=== PATIENT | male | born 1985 | race Caucasian/White ===

== ENCOUNTER 2016-06-23 11:32 | Emergency (ER) | payer SELFPAY ==
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
[2016-06-23 13:59] VITALS: BP 124/68; PULSE 97; RESP 18; TEMP 97.9
== END 2016-06-23 14:06 | disposition home or self-care (01) ==
LOC: EC 11:32
DX: M51.26 Other intervertebral disc displacement, lumbar region (principal); M51.27 Other intervertebral disc displacement, lumbosacral region; L05.91 Pilonidal cyst without abscess; F90.9 Attention-deficit hyperactivity disorder, unspecified type; F17.200 Nicotine dependence, unspecified, uncomplicated; Z88.5 Allergy status to narcotic agent; Z79.899 Other long term (current) drug therapy; W17.89XA Other fall from one level to another, initial encounter; Y93.55 Activity, bike riding
CPT/HCPCS: 72131; 99283

== ENCOUNTER 2016-11-23 16:52 | Emergency (ER) | payer OTHER ==
[2016-11-23 17:33] VITALS: BP 122/60; PULSE 89; RESP 16; TEMP 98.6
[2016-11-23] MEDS ORDERED: ACET/COD 300 MG/30 MG STARTER PACK 6 TAB BTL PO STA (17:56)
[2016-11-23] MEDS ORDERED: SULFAMETH-TMP DS STARTER PACK 2 TAB BTL PO STA (17:56)
--- NOTE | 2016-11-23 18:33 | ED ---
Skin/Abscess/FB HPI - General Chief complaint: Skin/Abscess/Foreign Body Stated complaint: Cyst on Tailbone Time Seen by Provider: 11/23/16 17:51 Source: patient, RN notes reviewed, old records reviewed Mode of arrival: ambulatory Limitations: no limitations - History of Present Illness Initial comments: 31 year old male with CC of abscess on taibone for the past 24 hours. Patient reports he has had pilionidal cyst on tailbone for the past few years, and has to have it drained everyonce in awhile, when it seems to act up. Patient reports that he has had no fever or chills.Patient denies any recent antibiotic use, and does not know if he has a hisotry of MRSA. - Related Data Home Medications Medication Instructions Recorded Confirmed Dextroamphetamine/Amphetamine 20 mg PO BID 09/11/15 06/23/16 [Adderall] Previous Rx's Medication Instructions Recorded predniSONE 50 mg PO DAILY #5 tab 06/23/16 Acetaminophen-Codeine 300-30mg 1 tab PO Q4H PRN #20 tablet 11/23/16 [Tylenol #3] Sulfamethox-Tmp 800-160Mg [Bactrim 2 tab PO Q12HR #40 tab 11/23/16 DS 800-160 mg] Allergies Allergy/AdvReac Type Severity Reaction Status Date / Time tramadol Allergy Swelling Verified 06/23/16 13:14 Review of Systems ROS Statement: Those systems with pertinent positive or pertinent negative responses have been documented in the HPI. ROS Other: All systems not noted in ROS Statement are negative. Past Medical History Past Medical History: No Reported History Additional Past Medical History / Comment(s): back pain, pilonidal cyst History of Any Multi-Drug Resistant Organisms: None Reported Past Surgical History: Back Surgery Additional Past Surgical History / Comment(s): laminectomy L4 L5 Past Psychological History: ADD/ADHD Smoking Status: Current every day smoker Past Alcohol Use History: None Reported Past Drug Use History: None Reported General Exam Limitations: no limitations General appearance: alert, in no apparent distress Head exam: Present: atraumatic, normocephalic, normal inspection Eye exam: Present: normal appearance, PERRL, EOMI. Absent: scleral icterus, conjunctival injection, periorbital swelling ENT exam: Present: normal exam, mucous membranes moist Neck exam: Present: normal inspection. Absent: tenderness, meningismus, lymphadenopathy Respiratory exam: Present: normal lung sounds bilaterally. Absent: respiratory distress, wheezes, rales, rhonchi, stridor Cardiovascular Exam: Present: regular rate, normal rhythm, normal heart sounds. Absent: systolic murmur, diastolic murmur, rubs, gallop, clicks GI/Abdominal exam: Present: soft, normal bowel sounds. Absent: distended, tenderness, guarding, rebound, rigid Extremities exam: Present: normal inspection, full ROM, normal capillary refill. Absent: tenderness, pedal edema, joint swelling, calf tenderness Back exam: Present: normal inspection, other (large pilionidal abscess. ) Neurological exam: Present: alert, oriented X3, CN II-XII intact Psychiatric exam: Present: normal affect, normal mood Skin exam: Present: warm, dry, intact, normal color. Absent: rash Course Vital Signs 11/23/16 17:30 Temperature 98.6 F Pulse Rate 89 Respiratory 16 Rate Blood Pressure 122/60 O2 Sat by Pulse 99 Oximetry Procedures - Incision & Drainage Consent Obtained: verbal consent Indication: pilionidal abscess Site: buttock Size (cm): 6 Anesthetic Used: lidocaine 1% Amount (mLs): 10 I&D Cleaning Method: Betadine Sterile Field Used?: Yes Scalpel Used: #11 I&D Drainage Obtained: Pus, Blood Packing: Iodoform Culture Obtained?: Yes Patient Tolerated Procedure: well, no complications Medical Decision Making - Medical Decision Making 31 year old male with CC of abscess on [facility] for the past 24 hours. Patient reports he has had pilionidal cyst on [facility] for the past few years, and has to have it drained everyonce in awhile, when it seems to act up. Patient recieved I and D of the abscess, significant amount of pus was removed. Patient was packed with iodoform and culture obtained. Patient will be started on bactrim DS. Discussed follow up with surgeon. Kvng agrees to treatment plan and will comply. Disposition Clinical Impression: Pilonidal abscess Disposition: HOME SELF-CARE Condition: Good Instructions: Pilonidal Cyst (ED) Additional Instructions: Patient needs to follow-up with a surgeon. Take antibiotics as prescribed. Remove the packing in approximately 3 days. Return to the emergency department if any alarming signs or symptoms occur including fevers, chills or worsening signs or symptoms. Prescriptions: Acetaminophen-Codeine 300-30mg [Tylenol #3] 1 tab PO Q4H PRN #20 tablet PRN Reason: Pain Sulfamethox-Tmp 800-160Mg [Bactrim DS 800-160 mg] 2 tab PO Q12HR #40 tab Referrals: Talita Aragon III, MD [Primary Care Provider] - 1-2 days Chuckie Deal MD [STAFF PHYSICIAN] - 1-2 days Time of Disposition: 18:31
== END 2016-11-23 18:45 | disposition home or self-care (01) ==
LOC: EC 16:52
DX: L05.01 Pilonidal cyst with abscess (principal); F90.9 Attention-deficit hyperactivity disorder, unspecified type; F17.200 Nicotine dependence, unspecified, uncomplicated; Z88.6 Allergy status to analgesic agent; Z79.899 Other long term (current) drug therapy
CPT/HCPCS: 10080; 87070; 87205; 99283

== ENCOUNTER 2020-11-27 10:34 | Emergency (ER) | payer OTHER ==
[2020-11-27 10:40] VITALS: BP 138/88; PULSE 73; RESP 16; TEMP 98.3
[2020-11-27] MEDS ORDERED: LIDOCAINE 1% INJ 10MG/ML (20 ML MDV) SQ ONE (10:46)
[2020-11-27] MEDS ORDERED: ACET/COD 300 MG/30 MG STARTER PACK 6 TAB BTL PO STA (10:51)
--- NOTE | 2020-11-27 10:51 | ED ---
Skin/Abscess/FB HPI - General Chief complaint: Skin/Abscess/Foreign Body Stated complaint: cyst on tailbone Time Seen by Provider: 11/27/20 10:42 Source: patient, RN notes reviewed Mode of arrival: ambulatory Limitations: no limitations - History of Present Illness Initial comments: 35-year-old male presents emergency Department with chief complaint of abscess. Patient states that he felt with cysts in this region past. Patient states started amoxicillin for dental infection 4 days ago states it's popped up and last 24 hours. Patient states it is painful states her small amount of drainage. No fevers no chills no other complaints - Related Data Home Medications Medication Instructions Recorded Confirmed Dextroamphetamine/Amphetamine 20 mg PO BID 09/11/15 06/23/16 [Adderall] Previous Rx's Medication Instructions Recorded predniSONE 50 mg PO DAILY #5 tab 06/23/16 Acetaminophen-Codeine 300-30mg 1 tab PO Q4H PRN #20 tablet 11/23/16 [Tylenol #3] Sulfamethox-Tmp 800-160Mg [Bactrim 2 tab PO Q12HR #40 tab 11/23/16 DS 800-160 mg] Cyclobenzaprine [Flexeril] 10 mg PO TID #20 tab 03/31/17 Ibuprofen [Motrin] 600 mg PO Q6HR PRN #40 day 03/31/17 Ibuprofen [Motrin] 600 mg PO Q8HR PRN #20 tab 11/27/20 Sulfamethox-Tmp 800-160Mg [Bactrim 1 each PO Q12HR #20 tab 11/27/20 Ds] Allergies Allergy/AdvReac Type Severity Reaction Status Date / Time tramadol Allergy Swelling Verified 11/27/20 10:38 Review of Systems ROS Statement: Those systems with pertinent positive or pertinent negative responses have been documented in the HPI. ROS Other: All systems not noted in ROS Statement are negative. Past Medical History Past Medical History: No Reported History Additional Past Medical History / Comment(s): back pain, pilonidal cyst History of Any Multi-Drug Resistant Organisms: None Reported Past Surgical History: Back Surgery Additional Past Surgical History / Comment(s): laminectomy L4 L5 Past Psychological History: ADD/ADHD Smoking Status: Never smoker Past Alcohol Use History: None Reported Past Drug Use History: None Reported General Exam Limitations: no limitations General appearance: alert, in no apparent distress Head exam: Present: atraumatic, normocephalic, normal inspection Respiratory exam: Present: normal lung sounds bilaterally. Absent: respiratory distress, wheezes, rales, rhonchi, stridor Cardiovascular Exam: Present: regular rate, normal rhythm, normal heart sounds. Absent: systolic murmur, diastolic murmur, rubs, gallop, clicks Skin exam: Present: warm, dry, intact, normal color, other (5 cm abscess the cleft of the buttocks primarily on the right). Absent: rash Course Vital Signs 11/27/20 10:39 Temperature 98.3 F Pulse Rate 73 Respiratory 16 Rate Blood Pressure 138/88 O2 Sat by Pulse 97 Oximetry Medical Decision Making - Medical Decision Making 35-year-old male present emergency department for abscess. I&D was going to be performed though abscess ruptured, expressed 40-50 mL of purulent drainage Disposition Clinical Impression: Pilonidal cyst with abscess Disposition: HOME SELF-CARE Condition: Stable Instructions (If sedation given, give patient instructions): Abscess (ED) Additional Instructions: Please return to the Emergency Department if symptoms worsen or any other concerns. Prescriptions: Sulfamethox-Tmp 800-160Mg [Bactrim Ds] 1 each PO Q12HR #20 tab Ibuprofen [Motrin] 600 mg PO Q8HR PRN #20 tab PRN Reason: Pain Is patient prescribed a controlled substance at d/c from ED?: No Referrals: None,Stated [Primary Care Provider] - 1-2 days Chuckie Deal MD [STAFF PHYSICIAN] - 1-2 days Time of Disposition: 10:59
== END 2020-11-27 11:39 | disposition home or self-care (01) ==
LOC: EC 10:34
DX: L05.01 Pilonidal cyst with abscess (principal); Z88.5 Allergy status to narcotic agent
CPT/HCPCS: 10060; 99282

== ENCOUNTER 2021-11-15 10:08 | Emergency (ER) | payer OTHER ==
[2021-11-15] MEDS ORDERED: ORPHENADRINE 30 MG/ML 2 ML VIAL IM STA (10:26)
[2021-11-15] MEDS ORDERED: ORPHENADRINE 30 MG/ML 2 ML VIAL IVP STA (10:27)
[2021-11-15] MEDS ORDERED: methylPREDNISolone SOD SUCCI 125 MG/2 ML VIAL IV STA (10:27)
[2021-11-15] MEDS ORDERED: HYDROmorphone 0.5 MG/0.5 ML SYRINGE IVP STA (10:28)
[2021-11-15] MEDS ORDERED: LIDOCAINE 5% PATCH TOPICAL SCH (10:30)
[2021-11-15] MEDS ORDERED: ACET/COD 300 MG/30 MG STARTER PACK 6 TAB BTL PO STA (11:06)
--- NOTE | 2021-11-15 11:13 | ED ---
Back Pain [facility] - General Chief Complaint: Back Pain/Injury Stated Complaint: Back Pain Time Seen by Provider: 11/15/21 10:14 Source: patient Limitations: no limitations - History of Present Illness Initial Comments: Patient is a 36-year-old male who presents to the emergency department with a chief complaint of lower back pain. Patient states he was moving boxes around in his house yesterday when he pulled something in his right lower back. Patient states he had minimal pain until this morning when waking up. Pain is in the right lower back. Patient has history of L4-L5 and L5 to S1 disc herniation. States he has not had back issues in about a year. States he has bilateral radicular symptoms at baseline however since the injury yesterday feels a little bit more tingling in his feet. He denies leg weakness. Denies numbness and tingling in the groin/buttock region. Denies loss of bowel or bladder function. Patient states he has been taking Motrin 800 without any relief. Patient no longer follows with family reunification specialist due to moving out of area. - Related Data Home Medications Medication Instructions Recorded Confirmed Dextroamphetamine/Amphetamine 20 mg PO BID 09/11/15 06/23/16 [Adderall] Previous Rx's Medication Instructions Recorded predniSONE 50 mg PO DAILY #5 tab 06/23/16 Acetaminophen-Codeine 300-30mg 1 tab PO Q4H PRN #20 tablet 11/23/16 [Tylenol #3] Sulfamethox-Tmp 800-160Mg [Bactrim 2 tab PO Q12HR #40 tab 11/23/16 DS 800-160 mg] Cyclobenzaprine [Flexeril] 10 mg PO TID #20 tab 03/31/17 Ibuprofen [Motrin] 600 mg PO Q6HR PRN #40 day 03/31/17 Ibuprofen [Motrin] 600 mg PO Q8HR PRN #20 tab 11/27/20 Sulfamethox-Tmp 800-160Mg [Bactrim 1 each PO Q12HR #20 tab 11/27/20 Ds] Cyclobenzaprine [Flexeril] 10 mg PO TID PRN #15 tab 11/15/21 Lidocaine 5% Patch [Lidoderm 5% 1 patch TOPICAL DAILY PRN #7 patch 11/15/21 Patch] predniSONE 50 mg PO DAILY #5 tab 11/15/21 Allergies Allergy/AdvReac Type Severity Reaction Status Date / Time tramadol Allergy Swelling Verified 11/15/21 10:13 Review of Systems ROS Statement: Those systems with pertinent positive or pertinent negative responses have been documented in the HPI. ROS Other: All systems not noted in ROS Statement are negative. Past Medical History Past Medical History: No Reported History Additional Past Medical History / Comment(s): back pain, pilonidal cyst History of Any Multi-Drug Resistant Organisms: None Reported Past Surgical History: Back Surgery Additional Past Surgical History / Comment(s): laminectomy L4 L5 Past Psychological History: ADD/ADHD Smoking Status: Current every day smoker Past Alcohol Use History: None Reported Past Drug Use History: Marijuana General Exam Limitations: no limitations General appearance: alert, in no apparent distress Head exam: Present: atraumatic, normocephalic, normal inspection Respiratory exam: Present: normal lung sounds bilaterally. Absent: respiratory distress, wheezes, rales, rhonchi, stridor Cardiovascular Exam: Present: regular rate, normal rhythm, normal heart sounds. Absent: systolic murmur, diastolic murmur, rubs, gallop, clicks Extremities exam: Present: normal inspection, full ROM Back exam: Present: normal inspection, full ROM, paraspinal tenderness (right lumbar). Absent: vertebral tenderness Neurological exam: Present: alert, oriented X3, CN II-XII intact Psychiatric exam: Present: normal affect, normal mood Skin exam: Present: warm, dry, intact, normal color. Absent: rash Course Vital Signs 11/15/21 10:11 Temperature 98 F Pulse Rate 85 Respiratory 20 Rate Blood Pressure 128/75 O2 Sat by Pulse 97 Oximetry Medical Decision Making - Medical Decision Making This is a 36-year-old male who presents to the emergency department with back pain. Thorough history and examination were performed. Patient is well- appearing. No saddle anesthesia. No loss of bowel or bladder function. There is tenderness of the right lumbar paravertebral muscles. There is no bony tenderness to warrant imaging. There are no signs of neurological deficit. Pain controlled in the emergency department. With patient's history of disc herniation I will send him home with prednisone and symptomatic management. I did list an family reunification specialist for patient to follow-up with if symptoms do not improve in 1-2 weeks. Return parameters discussed. Patient verbalizes understanding and is agreeable to this plan. Dr. Elliott is my attending. Disposition Clinical Impression: Mechanical back pain Disposition: HOME SELF-CARE Condition: Good Instructions (If sedation given, give patient instructions): Acute Low Back Pain (ED) Additional Instructions: Please take medication as directed. Do not drink alcohol or operate machinery while taking Flexeril as it can make you sleepy. Apply cold compress to affected area for the next 24 hours. After if symptoms continue, apply warm compress. Perform back stretches daily as discussed. Follow up with family reunification specialist if symptoms do not improve in 1-2 weeks. Return to the emergency department if you experience new, concerning, or worsening symptoms. Prescriptions: Cyclobenzaprine [Flexeril] 10 mg PO TID PRN #15 tab PRN Reason: Muscle Spasm Lidocaine 5% Patch [Lidoderm 5% Patch] 1 patch TOPICAL DAILY PRN #7 patch PRN Reason: Pain predniSONE 50 mg PO DAILY #5 tab Is patient prescribed a controlled substance at d/c from ED?: No Referrals: None,Stated [Primary Care Provider] - 1-2 days Katelyn Barraza DO [Doctor of Osteopathic Medicine] - 1-2 days
[2021-11-15 14:33] VITALS: BP 124/86; PULSE 80; RESP 18; TEMP 98.1
== END 2021-11-15 12:06 | disposition home or self-care (01) ==
LOC: EC 10:08
DX: M54.50 Low back pain, unspecified (principal); F17.200 Nicotine dependence, unspecified, uncomplicated; Z88.5 Allergy status to narcotic agent
CPT/HCPCS: 99283; 96374; 96375; 96372; J2360; J2930; J1170

== ENCOUNTER 2021-12-31 20:01 | Emergency (ER) | payer OTHER ==
[2021-12-31 20:11] VITALS: RESP 16
[2021-12-31] MEDS ORDERED: PENICILLIN VK 500MG STARTER 4 TAB BTL PO STA (22:10)
--- NOTE | 2021-12-31 22:12 | ED ---
ENT HPI - General Chief complaint: Dental/Oral Stated complaint: Dental pain Time Seen by Provider: 12/31/21 22:06 Source: patient Mode of arrival: ambulatory - History of Present Illness Initial comments: Patient states he had a swollen area to his right upper molar area. He states this started last few days and with pressure was getting worse today. He states in the waiting room and seemed to understand had some pus coming out of it. Patient denying any fever or chills. Denies any difficulty swallowing. Patient is a cigarette smoker. No history of immunosuppression or diabetes. No headache, no fever or chills, no changes in vision or hearing, no sore throat or difficulty with speech, no neck pain, no chest pain or shortness of breath, no abdominal pain, no nausea or vomiting, no changes in urination or bowel movements, no numbness or tingling, no extremity pain, no skin rashes or lesions. Past medical, surgical, social, and family history reviewed. MD complaint: tooth pain - Related Data Home Medications Medication Instructions Recorded Confirmed Dextroamphetamine/Amphetamine 20 mg PO BID 09/11/15 06/23/16 [Adderall] Previous Rx's Medication Instructions Recorded predniSONE 50 mg PO DAILY #5 tab 06/23/16 Acetaminophen-Codeine 300-30mg 1 tab PO Q4H PRN #20 tablet 11/23/16 [Tylenol #3] Sulfamethox-Tmp 800-160Mg [Bactrim 2 tab PO Q12HR #40 tab 11/23/16 DS 800-160 mg] Cyclobenzaprine [Flexeril] 10 mg PO TID #20 tab 03/31/17 Ibuprofen [Motrin] 600 mg PO Q6HR PRN #40 day 03/31/17 Ibuprofen [Motrin] 600 mg PO Q8HR PRN #20 tab 11/27/20 Sulfamethox-Tmp 800-160Mg [Bactrim 1 each PO Q12HR #20 tab 11/27/20 Ds] Cyclobenzaprine [Flexeril] 10 mg PO TID PRN #15 tab 11/15/21 Lidocaine 5% Patch [Lidoderm 5% 1 patch TOPICAL DAILY PRN #7 patch 11/15/21 Patch] predniSONE 50 mg PO DAILY #5 tab 11/15/21 Penicillin V Potassium [Pen Vee K] 500 mg PO QID #40 tablet 12/31/21 Allergies Allergy/AdvReac Type Severity Reaction Status Date / Time No Known Allergies Allergy Verified 12/31/21 20:11 Review of Systems ROS Statement: Those systems with pertinent positive or pertinent negative responses have been documented in the HPI. ROS Other: All systems not noted in ROS Statement are negative. Past Medical History Past Medical History: No Reported History Additional Past Medical History / Comment(s): back pain, pilonidal cyst History of Any Multi-Drug Resistant Organisms: None Reported Past Surgical History: Back Surgery Additional Past Surgical History / Comment(s): laminectomy L4 L5 Past Psychological History: ADD/ADHD Smoking Status: Current every day smoker Past Alcohol Use History: None Reported Past Drug Use History: Marijuana General Exam Limitations: no limitations General appearance: alert, in no apparent distress Head exam: Present: atraumatic, normocephalic, normal inspection Eye exam: Present: normal appearance, EOMI. Absent: scleral icterus, conjunctival injection ENT exam: Present: mucous membranes moist, TM's normal bilaterally, normal external ear exam. Absent: mucous membranes dry Expanded Ear exam: Present: normal external inspection Mouth exam: Absent: drooling, trismus, muffled voice, tongue normal, tongue elevation, laceration Teeth exam: Present: dental caries, dental tenderness # (Tooth #4 area, patient has a dental carry eroded into the department with adjacent minimal abscess which is currently draining. No cellulitis. No airway compromise.) Throat exam: normal inspection. negative: tonsillar erythema, tonsillomegaly, tonsillar exudate, R peritonsillar mass, L peritonsillar mass Neck exam: Present: normal inspection, full ROM. Absent: tenderness, lymphadenopathy Respiratory exam: Present: normal lung sounds bilaterally. Absent: respiratory distress, wheezes, rales, rhonchi, stridor Cardiovascular Exam: Present: regular rate, normal rhythm, normal heart sounds. Absent: systolic murmur, diastolic murmur, rubs, gallop, clicks GI/Abdominal exam: Present: soft. Absent: tenderness Extremities exam: Present: normal inspection Neurological exam: Present: alert, oriented X3, CN II-XII intact Psychiatric exam: Present: normal affect, normal mood Skin exam: Present: warm, dry, intact, normal color. Absent: rash Course Vital Signs 12/31/21 20:08 Temperature 98.4 F Pulse Rate 90 Respiratory 16 Rate Blood Pressure 150/93 O2 Sat by Pulse 98 Oximetry Procedures - Smoking Cessation Time Spent Discussing Smoking Cessation w/Patient (Minutes): 3 Patient Acknowledges Need for Cessation: No Medical Decision Making - Medical Decision Making Patient counseled on smoking cessation. Patient was treated with antibiotics. Penicillin VK given here. 500 mg 4 times a day. Patient has an appointment next with a dentist. Patient was told to return to the ER for any signs or symptoms worsen. Told to return immediately if any other problems arise. All questions answered. Treatment plan discussed. Patient in agreement Every effort has been made to ensure accuracy of this dictation. However, due to the limitations of electronic medical records and dictation devices, errors in charting still occur. Supervising Dr. Robles Disposition Clinical Impression: Dental abscess, Cigarette smoker Disposition: HOME SELF-CARE Condition: Good Instructions (If sedation given, give patient instructions): How to Stop Smoking (ED), Dental Abscess (ED) Additional Instructions: Take antibiotics as directed. Follow-up with your dentist as discussed. Follow-up with your regular physician as directed. Return to the ER immediately if any symptoms worsen, new symptoms arise, or any other problems develop. Prescriptions: Penicillin V Potassium [Pen Vee K] 500 mg PO QID #40 tablet Is patient prescribed a controlled substance at d/c from ED?: No Referrals: None,Stated [Primary Care Provider] - 1-2 days Time of Disposition: 22:12
[2021-12-31 23:04] VITALS: BP 149/87; PULSE 82; TEMP 98.1
== END 2021-12-31 22:30 | disposition home or self-care (01) ==
LOC: EC 20:01
DX: K04.7 Periapical abscess without sinus (principal); F17.200 Nicotine dependence, unspecified, uncomplicated

== ENCOUNTER 2022-10-31 13:17 | Emergency (ER) | payer OTHER ==
[2022-10-31 13:46] VITALS: BP 126/77; PULSE 80; RESP 18; TEMP 98.4
--- NOTE | 2022-10-31 14:14 | ED ---
General Adult HPI - General Source: patient, RN notes reviewed, old records reviewed Mode of arrival: ambulatory Limitations: no limitations <Johnny Elliott - Last Filed: 10/31/22 14:52> <Kelvin Ham - Last Filed: 10/31/22 16:03> - General Chief complaint: Urogenital Stated complaint: blood in urine Time Seen by Provider: 10/31/22 13:45 - History of Present Illness Initial comments: This is a 37-year-old male presents emergency department today stating that when he woke up this morning after being very dehydrated yesterday he had very dark urine. Patient states he had no pain no blood no back pain. Patient states he had no other symptoms other than the urine looked very dark. Patient states he went again this afternoon and he thought he saw some sediment in it so he decided come to the emergency department. Again patient had no pain no dysuria and no blood. (Johnny Elliott) - Related Data Home Medications Medication Instructions Recorded Confirmed Dextroamphetamine/Amphetamine 20 mg PO BID 09/11/15 06/23/16 [Adderall] Previous Rx's Medication Instructions Recorded predniSONE 50 mg PO DAILY #5 tab 06/23/16 Acetaminophen-Codeine 300-30mg 1 tab PO Q4H PRN #20 tablet 11/23/16 [Tylenol #3] Sulfamethox-Tmp 800-160Mg [Bactrim 2 tab PO Q12HR #40 tab 11/23/16 DS 800-160 mg] Cyclobenzaprine [Flexeril] 10 mg PO TID #20 tab 03/31/17 Ibuprofen [Motrin] 600 mg PO Q6HR PRN #40 day 03/31/17 Ibuprofen [Motrin] 600 mg PO Q8HR PRN #20 tab 11/27/20 Sulfamethox-Tmp 800-160Mg [Bactrim 1 each PO Q12HR #20 tab 11/27/20 Ds] Cyclobenzaprine [Flexeril] 10 mg PO TID PRN #15 tab 11/15/21 Lidocaine 5% Patch [Lidoderm 5% 1 patch TOPICAL DAILY PRN #7 patch 11/15/21 Patch] predniSONE 50 mg PO DAILY #5 tab 11/15/21 Penicillin V Potassium [Pen Vee K] 500 mg PO QID #40 tablet 12/31/21 Allergies Allergy/AdvReac Type Severity Reaction Status Date / Time No Known Allergies Allergy Verified 10/31/22 13:42 Review of Systems ROS Other: All systems not noted in ROS Statement are negative. <Johnny Elliott - Last Filed: 10/31/22 14:52> ROS Other: All systems not noted in ROS Statement are negative. <Kelvin Ham - Last Filed: 10/31/22 16:03> ROS Statement: Those systems with pertinent positive or pertinent negative responses have been documented in the HPI. Past Medical History Past Medical History: No Reported History Additional Past Medical History / Comment(s): back pain, pilonidal cyst History of Any Multi-Drug Resistant Organisms: None Reported Past Surgical History: Back Surgery Additional Past Surgical History / Comment(s): laminectomy L4 L5 Past Psychological History: ADD/ADHD, Anxiety, Bipolar Smoking Status: Current every day smoker Past Alcohol Use History: None Reported Past Drug Use History: Marijuana <Johnny Elliott - Last Filed: 10/31/22 14:52> General Exam Limitations: no limitations <Johnny Elliott - Last Filed: 10/31/22 14:52> - General Exam Comments Initial Comments: GENERAL: Patient is well-developed and well-nourished. Patient is nontoxic and well- hydrated and is in no acute distress. ENT: Neck is soft and supple. No significant lymphadenopathy is noted. Oropharynx is clear. Moist mucous membranes. Neck has full range of motion without eliciting any pain. EYES: The sclera were anicteric and conjunctiva were pink and moist. Extraocular movements were intact and pupils were equal round and reactive to light. Eyelids were unremarkable. ABDOMEN: Soft and nontender with normal bowel sounds. SKIN: Skin is clear with no lesions or rashes and otherwise unremarkable. NEUROLOGIC: Patient is alert and oriented x3. Cranial nerves II through XII are grossly intact. Motor and sensory are also intact. Normal speech, volume and content. Symmetrical smile. MUSCULOSKELETAL: Normal extremities with adequate strength and full range of motion. LYMPHATICS: No significant lymphadenopathy is noted PSYCHIATRIC: Normal psychiatric evaluation. (Johnny Elliott) Course Vital Signs 10/31/22 13:43 Temperature 98.4 F Pulse Rate 80 Respiratory 18 Rate Blood Pressure 126/77 O2 Sat by Pulse 99 Oximetry Medical Decision Making <Johnny Elliott - Last Filed: 10/31/22 14:52> - Lab Data Result diagrams: 10/31/22 14:56 10/31/22 14:56 <Kelvin Ham - Last Filed: 10/31/22 16:03> - Medical Decision Making Was pt. sent in by a medical professional or institution (, [facility], [employer], urgent care, hospital, or usp...) When possible be specific @ -[No] Did you speak to anyone other than the patient for history (EMS, parent, family, police, friend...)? What history was obtained from this source @ -[No] Did you review nursing and triage notes (agree or disagree)? Why? @ -[I reviewed and agree with nursing and triage notes] Were old charts reviewed (outside hosp., previous admission, EMS record, old EKG, old radiological studies, urgent care reports/EKG's, usp records)? Report findings @ -[No old charts were reviewed] Differential Diagnosis (chest pain, altered mental status, abdominal pain women, abdominal pain men, vaginal bleeding, weakness, fever, dyspnea, syncope, headache, dizziness, GI bleed, back pain, seizure, CVA, palpatations, mental health, musculoskeletal)? @ -Urinary tract infection, kidney stone, bladder tumor, renal tumor this is not all inclusive list EKG interpreted by me (3pts min.). @ -[As above] X-rays interpreted by me (1pt min.). @ -[None done] CT interpreted by me (1pt min.). @ -[None done] U/S interpreted by me (1pt. min.). @ -[None done] What testing was considered but not performed or refused? (CT, X-rays, U/S, labs)? Why? @ -[None] What meds were considered but not given or refused? Why? @ -[None] Did you discuss the management of the patient with other professionals (professionals i.e. , [facility], [employer], lab, RT, psych nurse, high school social studies teacher, survey analyst, teacher, supervisory cbp officer, case resolution specialist)? Give summary @ -[No] Was smoking cessation discussed for >3mins.? @ -[No] Was critical care preformed (if so, how long)? @ -[No] Were there social determinants of health that impacted care today? How? (Homelessness, low income, unemployed, alcoholism, drug addiction, transportation, low edu. Level, literacy, decrease access to med. care, usp, rehab)? @ -[No] Was there de-escalation of care discussed even if they declined (Discuss DNR or withdrawal of care, Hospice)? DNR status @ -[No] What co-morbidities impacted this encounter? (DM, HTN, Smoking, COPD, CAD, Cancer, CVA, ARF, Chemo, Hep., AIDS, mental health diagnosis, sleep apnea, morbid obesity)? @ -[None] Was patient admitted / discharged? Hospital course, mention meds given and route, prescriptions, significant lab abnormalities, going to OR and other pertinent info. @ -Patient had a significant amount of blood in the urine. At this point, I did load work and CT of his abdomen and pelvis. Dr. Ham will be taking over the care of this patient at 3 PM. (Johnny Elliott) Patient's care was signed out awaiting laboratory testing and CT for painless hematuria. Laboratory testing is unremarkable including normal hemoglobin, normal kidney function, normal electrolytes. CT does not show any acute abnor mality that would explain the patient's hematuria, no acute findings. I do feel the patient is stable for discharge at this time with urology follow-up. He has urinated again in the emergency department and his urine was reported as clear. (Kelvin Ham) - Lab Data Lab Results 10/31/22 10/31/22 10/31/22 Range/Units 14:10 14:56 14:56 WBC 8.4 (3.8-10.6) k/uL RBC 4.58 (4.30-5.90) m/uL Hgb 14.4 (13.0-17.5) gm/dL Hct 41.2 (39.0-53.0) % MCV 90.0 (80.0-100.0) fL MCH 31.5 (25.0-35.0) pg MCHC 34.9 (31.0-37.0) g/dL RDW 12.8 (11.5-15.5) % Plt Count 172 (150-450) k/uL MPV 9.0 Neutrophils % 62 % Lymphocytes % 29 % Monocytes % 5 % Eosinophils % 3 % Basophils % 1 % Neutrophils # 5.2 (1.3-7.7) k/uL Lymphocytes # 2.4 (1.0-4.8) k/uL Monocytes # 0.5 (0-1.0) k/uL Eosinophils # 0.2 (0-0.7) k/uL Basophils # 0.1 (0-0.2) k/uL Sodium 140 (137-145) mmol/L Potassium 4.4 (3.5-5.1) mmol/L Chloride 106 (98-107) mmol/L Carbon Dioxide 28 (22-30) mmol/L Anion Gap 6 mmol/L BUN 12 (9-20) mg/dL Creatinine 0.76 (0.66-1.25) mg/dL Est GFR (CKD-EPI)AfAm >90 (>60 ml/min/1.73 sqM) Est GFR (CKD-EPI)NonAf >90 (>60 ml/min/1.73 sqM) Glucose 86 (74-99) mg/dL Calcium 9.1 (8.4-10.2) mg/dL Total Bilirubin 0.3 (0.2-1.3) mg/dL AST 20 (17-59) U/L ALT 17 (4-49) U/L Alkaline Phosphatase 47 (38-126) U/L Total Protein 6.9 (6.3-8.2) g/dL Albumin 4.3 (3.5-5.0) g/dL Urine Color Yellow Urine Appearance Clear (Clear) Urine pH 6.0 (5.0-8.0) Ur Specific Irene 1.012 (1.001-1.035) Urine Protein Negative (Negative) Urine Glucose (UA) Negative (Negative) Urine Ketones Negative (Negative) Urine Blood Large H (Negative) Urine Nitrite Negative (Negative) Urine Bilirubin Negative (Negative) Urine Urobilinogen <2.0 (<2.0) mg/dL Ur Leukocyte Esterase Negative (Negative) Urine RBC >182 H (0-5) /hpf Urine WBC 4 (0-5) /hpf Urine Mucus Rare H (None) /hpf Disposition <Johnny Elliott - Last Filed: 10/31/22 14:52> Is patient prescribed a controlled substance at d/c from ED?: No Time of Disposition: 16:03 <Kelvin Ham - Last Filed: 10/31/22 16:03> Clinical Impression: Hematuria Disposition: HOME SELF-CARE Condition: Good Instructions (If sedation given, give patient instructions): Hematuria (ED) Referrals: None,Stated [Primary Care Provider] - 1-2 days Reji Ashton MD [STAFF PHYSICIAN] - 1-2 days
[2022-10-31 14:23] LABS: Appearance,Urine Clear (Clear); Bilirubin,Urine Negative (Negative); Blood,Urine Large (Negative); Color,Urine Yellow; Glucose,Urine (UA) Negative (Negative); Ketones,Urine Negative (Negative); Leukocyte Esterase,Urine Negative (Negative); Mucus,Urine Rare /hpf; Nitrite,Urine Negative (Negative); Protein,Urine Negative (Negative); RBC,Urine >182 /hpf (0-5); Specific Gravity,Urine 1.012 (1.001-1.035); Urobilinogen,Urine <2.0 mg/dL (<2.0); WBC,Urine 4 /hpf (0-5)
[2022-10-31 15:13] LABS: Basophils # (A) 0.1 k/uL (0-0.2); Basophils % (A) 1 %; Eosinophils # (A) 0.2 k/uL (0-0.7); Eosinophils % (A) 3 %; HCT 41.2 % (39.0-53.0); HGB 14.4 gm/dL (13.0-17.5); Lymphocytes # (A) 2.4 k/uL (1.0-4.8); Lymphocytes % (A) 29 %; MCH 31.5 pg (25.0-35.0); MCHC 34.9 g/dL (31.0-37.0); Monocytes # (A) 0.5 k/uL (0-1.0); Monocytes % (A) 5 %; Neutrophils # (A) 5.2 k/uL (1.3-7.7); Neutrophils % (A) 62 %; Platelet Count 172 k/uL (150-450); RBC 4.58 m/uL (4.30-5.90); RDW 12.8 % (11.5-15.5); WBC 8.4 k/uL (3.8-10.6)
[2022-10-31 15:22] LABS: ALT 17 U/L (4-49); AST 20 U/L (17-59); African American GFR (CKD) >90 (>60 ml/min/1.73 sqM); Albumin 4.3 g/dL (3.5-5.0); Alkaline Phosphatase 47 U/L (38-126); Anion Gap 6 mmol/L; Blood Urea Nitrogen 12 mg/dL (9-20); Calcium 9.1 mg/dL (8.4-10.2); Carbon Dioxide 28 mmol/L (22-30); Chloride 106 mmol/L (98-107); Glucose 86 mg/dL (74-99); Non-African American GFR(CKD) >90 (>60 ml/min/1.73 sqM); Potassium 4.4 mmol/L (3.5-5.1); Sodium 140 mmol/L (137-145); Total Bilirubin 0.3 mg/dL (0.2-1.3); Total Protein 6.9 g/dL (6.3-8.2)
--- NOTE | 2022-10-31 15:47 | CT ---
EXAMINATION TYPE: CT abdomen pelvis w con DATE OF EXAM: 10/31/2022 COMPARISON: None INDICATION: Hematuria DLP: 656.6 mGycm, Automated exposure control for dose reduction was used. CONTRAST: 100 mL of Isovue 300. Study performed without Oral Contrast TECHNIQUE: Axial images were obtained from above the diaphragm to the pubic rami in the axial plane a t 5 mm thick sections. Reconstructed images are reviewed on the computer in the coronal plane. FINDINGS: Limited CT sections are obtained the lung bases. The lung bases are clear. CT ABDOMEN: Liver: Normal Spleen: Normal Pancreas: Normal Adrenal glands: The adrenal glands are normal. Gallbladder: Normal Kidneys: No masses are evident. No hydronephrosis is present. No cysts are present. Delayed images were obtained through the kidneys, which remain unremarkable. Aorta: Normal Inferior vena cava: Normal. CT PELVIS: Loops of bowel within the abdomen and pelvis are normal. This study is without oral contrast limi ting bowel evaluation. Appendix: Not well visualized. No dilated tubular structure or inflammatory change is evident. Small retrocecal appendix appears to be present. Urinary bladder: Decompressed with limited evaluation. Genitourinary structures: Prostate is normal Osseous structures: No suspicious lytic or sclerotic lesions. IMPRESSIONS: 1. No suspicious abnormality to account for hematuria. Follow-up can be performed as clinically mandeep cated.
== END 2022-10-31 16:41 | disposition home or self-care (01) ==
LOC: EC 13:17
DX: R31.9 Hematuria, unspecified (principal); F41.9 Anxiety disorder, unspecified; F31.9 Bipolar disorder, unspecified; F17.200 Nicotine dependence, unspecified, uncomplicated; F12.90 Cannabis use, unspecified, uncomplicated; Z79.899 Other long term (current) drug therapy
CPT/HCPCS: 36415; 80053; 85025; 81001; 74177; 99284; Q9967

== ENCOUNTER 2023-02-14 11:41 | Observation (INO) | payer OTHER ==
[2023-02-14] MEDS ORDERED: SODIUM CHLORIDE 0.9% 1,000 ML IV STA (12:05)
--- NOTE | 2023-02-14 12:39 | XR ---
EXAMINATION TYPE: XR chest 1V portable DATE OF EXAM: 02/14/2023 COMPARISON: 02/05/2016 HISTORY: Chest pain TECHNIQUE: Single frontal view of the chest is obtained. FINDINGS: There is no focal air space opacity, pleural effusion, or pneumothorax seen. There is hyperinflation which may reflect COPD. The cardiac silhouette size is within normal limits. The osseous structures are intact. IMPRESSION: 1. No acute process.
[2023-02-14 12:47] LABS: Basophils % (A) 1 %; Eosinophils # (A) 0.3 k/uL (0-0.7); Eosinophils % (A) 4 %; HCT 43.1 % (39.0-53.0); Lymphocytes # (A) 1.9 k/uL (1.0-4.8); Lymphocytes % (A) 27 %; MCHC 34.8 g/dL (31.0-37.0); MCV 91.9 fL (80.0-100.0); Mean Platelet Volume 8.8; Monocytes # (A) 0.5 k/uL (0-1.0); Monocytes % (A) 7 %; Neutrophils # (A) 4.2 k/uL (1.3-7.7); Neutrophils % (A) 60 %; Platelet Count 198 k/uL (150-450); RBC 4.68 m/uL (4.30-5.90); RDW 12.2 % (11.5-15.5)
[2023-02-14 13:04] LABS: INR 0.9 (<1.2); Partial Thromboplastin Time 27.5 sec (22.0-30.0); Prothrombin Time 10.2 sec (10.0-12.5)
[2023-02-14 13:11] LABS: ALT 27 U/L (4-49); AST 25 U/L (17-59); African American GFR (CKD) >90 (>60 ml/min/1.73 sqM); Albumin 4.3 g/dL (3.5-5.0); Alkaline Phosphatase 61 U/L (38-126); Anion Gap 10 mmol/L; Blood Urea Nitrogen 14 mg/dL (9-20); Calcium 9.4 mg/dL (8.4-10.2); Carbon Dioxide 23 mmol/L (22-30); Chloride 107 mmol/L (98-107); Glucose 81 mg/dL (74-99); Magnesium 2.1 mg/dL (1.6-2.3); Non-African American GFR(CKD) >90 (>60 ml/min/1.73 sqM); Potassium 4.4 mmol/L (3.5-5.1); Sodium 140 mmol/L (137-145); Total Bilirubin 0.3 mg/dL (0.2-1.3)
[2023-02-14 13:19] LABS: NT-Pro-B-Type Natriuretic Pept <20 pg/mL
--- NOTE | 2023-02-14 13:34 | ED ---
Chest Pain HPI - General Chief Complaint: Chest Pain Stated Complaint: chest pain Time Seen by Provider: 02/14/23 12:00 Source: patient, EMS, RN notes reviewed Mode of arrival: EMS Limitations: no limitations - History of Present Illness Initial Comments: 37-year-old male presents emergency Department with chief complaint of chest pain, dizziness, back pain. Patient states that he has sudden onset of chest pain that radiated up towards his left shoulder, neck region. He became very diaphoretic and nauseated. He states shortly after he became near syncopal very dizzy feeling. Patient has no prior cardiac disease denies lung disease he was short of breath at this time he states symptoms were improving F fraction was placed on him and shortly after he was given nitro. - Related Data Home Medications Medication Instructions Recorded Confirmed Dextroamphetamine/Amphetamine 20 mg PO BID 09/11/15 06/23/16 [Adderall] Previous Rx's Medication Instructions Recorded predniSONE 50 mg PO DAILY #5 tab 06/23/16 Acetaminophen-Codeine 300-30mg 1 tab PO Q4H PRN #20 tablet 11/23/16 [Tylenol #3] Sulfamethox-Tmp 800-160Mg [Bactrim 2 tab PO Q12HR #40 tab 11/23/16 DS 800-160 mg] Cyclobenzaprine [Flexeril] 10 mg PO TID #20 tab 03/31/17 Ibuprofen [Motrin] 600 mg PO Q6HR PRN #40 day 03/31/17 Ibuprofen [Motrin] 600 mg PO Q8HR PRN #20 tab 11/27/20 Sulfamethox-Tmp 800-160Mg [Bactrim 1 each PO Q12HR #20 tab 11/27/20 Ds] Cyclobenzaprine [Flexeril] 10 mg PO TID PRN #15 tab 11/15/21 Lidocaine 5% Patch [Lidoderm 5% 1 patch TOPICAL DAILY PRN #7 patch 11/15/21 Patch] predniSONE 50 mg PO DAILY #5 tab 11/15/21 Penicillin V Potassium [Pen Vee K] 500 mg PO QID #40 tablet 12/31/21 Allergies Allergy/AdvReac Type Severity Reaction Status Date / Time No Known Allergies Allergy Verified 10/31/22 13:42 Review of Systems ROS Statement: Those systems with pertinent positive or pertinent negative responses have been documented in the HPI. ROS Other: All systems not noted in ROS Statement are negative. EKG Findings - EKG Comments: EKG Findings:: EKG performed at 12:02 sinus rhythm rate of 76 [place] 156 QRS 106 QT/ QTC 354/455 noted of her T-wave in V3 - EKG Results: EKG: interpreted by TAYLOR Past Medical History Past Medical History: No Reported History Additional Past Medical History / Comment(s): back pain, pilonidal cyst, ulcers History of Any Multi-Drug Resistant Organisms: None Reported Past Surgical History: Back Surgery Additional Past Surgical History / Comment(s): laminectomy L4 L5 Past Psychological History: ADD/ADHD, Anxiety, Bipolar Smoking Status: Current every day smoker Past Alcohol Use History: None Reported Past Drug Use History: Marijuana General Exam Limitations: no limitations General appearance: alert, in no apparent distress Head exam: Present: atraumatic, normocephalic, normal inspection Eye exam: Present: normal appearance, PERRL, EOMI. Absent: scleral icterus, conjunctival injection, periorbital swelling ENT exam: Present: normal exam, normal oropharynx, mucous membranes moist Neck exam: Present: normal inspection, full ROM. Absent: tenderness, meningismus, lymphadenopathy Respiratory exam: Present: normal lung sounds bilaterally. Absent: respiratory distress, wheezes, rales, rhonchi, stridor Cardiovascular Exam: Present: regular rate, normal rhythm, normal heart sounds. Absent: systolic murmur, diastolic murmur, rubs, gallop, clicks GI/Abdominal exam: Present: soft, normal bowel sounds. Absent: distended, tenderness, guarding, rebound, rigid Course Vital Signs 02/14/23 11:49 Temperature 98.0 F Pulse Rate 66 Respiratory 18 Rate Blood Pressure 120/86 O2 Sat by Pulse 100 Oximetry Chest Pain MDM - MDM Was pt. sent in by a medical professional or institution (, PA, WINDSCREEN FITTER, urgent care, hospital, or fpc...) When possible be specific @ -No Did you speak to anyone other than the patient for history (EMS, parent, family, police, friend...)? What history was obtained from this source @ -No Did you review nursing and triage notes (agree or disagree)? Why? @ -I reviewed and agree with nursing and triage notes Were old charts reviewed (outside hosp., previous admission, EMS record, old EKG, old radiological studies, urgent care reports/EKG's, fpc records)? Report findings @ -No old charts were reviewed Differential Diagnosis (chest pain, altered mental status, abdominal pain women, abdominal pain men, vaginal bleeding, weakness, fever, dyspnea, syncope, headache, dizziness, GI bleed, back pain, seizure, CVA, palpatations, mental health, musculoskeletal)? @ -nDifferential Chest Pain: Stable Angina, Unstable Angina, STEMI, NSTEMI Aortic Dissection, Pneumothorax, Musculoskeletal, Esophageal Spasm GERD, Cholecystitis, Pancreatitis, Zoster, this is not meant to be an all-inclusive list. icable EKG interpreted by me (3pts min.). @ -As above X-rays interpreted by me (1pt min.). @ -Chest x-ray shows no acute process CT interpreted by me (1pt min.). @ -CT injured chest negative for aortic dissection, PE, U/S interpreted by me (1pt. min.). @ -None done What testing was considered but not performed or refused? (CT, X-rays, U/S, labs)? Why? @ -None What meds were considered but not given or refused? Why? @ -None Did you discuss the management of the patient with other professionals (professionals i.e. , PA, [employer]DSCREEN [employer]TER, lab, RT, psych nurse, social work lecturer, commercial maintenance technician, teacher, branch lending officer, bottle caser)? Give summary @ - sheet for admission given concerning her cardiac symptoms, presentation Was smoking cessation discussed for >3mins.? @ -No Was critical care preformed (if so, how long)? @ -No Were there social determinants of health that impacted care today? How? (Homelessness, low income, unemployed, alcoholism, drug addiction, transportation, low edu. Level, literacy, decrease access to med. care, intermediate, rehab)? @ -No Was there de-escalation of care discussed even if they declined (Discuss DNR or withdrawal of care, Hospice)? DNR status @ -No What co-morbidities impacted this encounter? (DM, HTN, Smoking, COPD, CAD, Cancer, CVA, ARF, Chemo, Hep., AIDS, mental health diagnosis, sleep apnea, morbid obesity)? @ -Smoking Was patient admitted / discharged? Hospital course, mention meds given and route, prescriptions, significant lab abnormalities, going to OR and other pertinent info. @ -Admitted patient will be admitted for cardiac rule out given concerning presentation for ACS initial troponin is negative, echocardiogram is ordered, cardiology evaluation ordered. Undiagnosed new problem with uncertain prognosis? @ -No Drug Therapy requiring intensive monitoring for toxicity (Heparin, Nitro, Insulin, Cardizem)? @ -No Were any procedures done? @ -No Diagnosis/symptom? @ -Chest pain, near-syncope Acute, or Chronic, or Acute on Chronic? @ -Acute Uncomplicated (without systemic symptoms) or Complicated (systemic symptoms)? @ -[complicated Side effects of treatment? @ -No Exacerbation, Progression, or Severe Exacerbation? @ -No Poses a threat to life or bodily function? How? (Chest pain, USA, MD, pneumonia, PE, COPD, DKA, ARF, appy, cholecystitis, CVA, Diverticulitis, Homicidal, Suicidal, threat to staff... and all critical care pts) @ -No Disposition Clinical Impression: Chest pain, Near syncope Disposition: ADMITTED IP TO THIS HOSP Condition: Fair Referrals: None,Stated [Primary Care Provider] - 1-2 days Time of Disposition: 14:53
--- NOTE | 2023-02-14 14:16 | CT ---
EXAMINATION TYPE: CT angio chest CT DLP: 555.7 mGycm, Automated exposure control for dose reduction was used. DATE OF EXAM: 02/14/2023 2:08 PM COMPARISON: Chest radiograph from same day. CLINICAL INDICATION:Male, 37 years old with history of pain. TECHNIQUE/CONTRAST: CTA scan of the thorax is performed without and with IV Contrast, patient injected with 100 mL of Iso jasiel 370, MIP images are created and reviewed these are created on a separate workstation.. FINDINGS: Pulmonary Artery: There is no evidence for a filling defect within the pulmonary vasculature to sugge st acute pulmonary embolism. The pulmonary artery is of normal size. Lungs/Pleura: No evidence of focal consolidation, pleural effusion or pneumothorax. Airway: Large airways are patent. Heart: Heart is within normal limits for size. Vasculature: No evidence of aortic aneurysm. Mediastinum: No gross evidence of adenopathy. Musculoskeletal: No acute osseous abnormalities Soft Tissues: Unremarkable. Lower neck: No significant findings. Upper Abdomen: Suspected hepatic hemangioma. IMPRESSION: No evidence of pulmonary embolism or acute process.
[2023-02-14] MEDS ORDERED: NITROGLYCERIN SL TABS 0.4 MG TAB SUBLINGUAL PRN (14:48)
--- NOTE | 2023-02-14 15:01 | P.HPIM ---
History of Present Illness This is a pleasant 37 years old male with no significant past medical history Presents because of chest pain/back pain. Patient states that he was at work today and suddenly he felt nausea and severe sweating lightheaded and he felt pain in the his back like stabbing pain shooting up to his back of his neck. Patient had tolerated down on the floor and his coworkers called for the embolus for him as he was hyperventilating When the embolus picked him up have the way to the hospital all his symptoms resolved spontaneously. Patient has bipolar diagnosis before and his sister which also has bipolar told him she has similar symptoms like him when she has panic attacks. Currently patient denies any chest pain or dyspnea. No change in urine or bowel habits. No fever. His back pain on all other symptoms as above results. He smokes more than half pack per day and he was counseled to quit and he agrees but he declines nicotine patch. No alcohol or illicit tracts. Patient does not have PCP Vitals looked normal He has unremarkable CBC INR BMP liver enzymes and troponin and BNP. All results normal. CTA of the chest: No PE, no acute process EKG showing normal sinus rhythm at [address]-T changes. Patient was started on aspirin emergency room Review of Systems Review of systems CONSTITUTIONAL: No fever, no malaise, no fatigue. HEENT: No recent visual problems or hearing problems. Denied any sore throat. CARDIOVASCULAR: No orthopnea, PND, no palpitations, no syncope. PULMONARY: No shortness of breath, no cough, no hemoptysis. GASTROINTESTINAL: No diarrhea, no nausea, no vomiting, no abdominal pain. Normoactive bowel sounds. NEUROLOGICAL: No headaches, no weakness, no numbness. HEMATOLOGICAL: Denies any bleeding or petechiae. GENITOURINARY: Denies any burning micturition, frequency, or urgency. MUSCULOSKELETAL/RHEUMATOLOGICAL: Denies any joint pain, swelling, or any muscle pain. ENDOCRINE: Denies any polyuria or polydipsia. Past Medical History Past Medical History: No Reported History Additional Past Medical History / Comment(s): back pain, pilonidal cyst, ulcers History of Any Multi-Drug Resistant Organisms: None Reported Past Surgical History: Back Surgery Additional Past Surgical History / Comment(s): laminectomy L4 L5 Past Psychological History: ADD/ADHD, Anxiety, Bipolar Smoking Status: Current every day smoker Past Alcohol Use History: None Reported Past Drug Use History: Marijuana Medications and Allergies Home Medications Medication Instructions Recorded Confirmed Type Dextroamphetamine/Amphetamine 20 mg PO BID 09/11/15 06/23/16 History [Adderall] predniSONE 50 mg PO DAILY #5 tab 06/23/16 Rx Acetaminophen-Codeine 300-30mg 1 tab PO Q4H PRN #20 tablet 11/23/16 Rx [Tylenol #3] Sulfamethox-Tmp 800-160Mg [Bactrim 2 tab PO Q12HR #40 tab 11/23/16 Rx DS 800-160 mg] Cyclobenzaprine [Flexeril] 10 mg PO TID #20 tab 03/31/17 Rx Ibuprofen [Motrin] 600 mg PO Q6HR PRN #40 day 03/31/17 Rx Ibuprofen [Motrin] 600 mg PO Q8HR PRN #20 tab 11/27/20 Rx Sulfamethox-Tmp 800-160Mg [Bactrim 1 each PO Q12HR #20 tab 11/27/20 Rx Ds] Cyclobenzaprine [Flexeril] 10 mg PO TID PRN #15 tab 11/15/21 Rx Lidocaine 5% Patch [Lidoderm 5% 1 patch TOPICAL DAILY PRN #7 patch 11/15/21 Rx Patch] predniSONE 50 mg PO DAILY #5 tab 11/15/21 Rx Penicillin V Potassium [Pen Vee K] 500 mg PO QID #40 tablet 12/31/21 Rx Allergies Allergy/AdvReac Type Severity Reaction Status Date / Time No Known Allergies Allergy Verified 10/31/22 13:42 Physical Exam Vitals: Vital Signs Temp Pulse Resp BP Pulse Ox 02/14/23 11:49 98.0 F 66 18 120/86 100 Intake and Output 02/13/23 02/14/23 02/14/23 22:59 06:59 14:59 Other: Weight 80.286 kg GENERAL: The patient is alert and oriented x3, not in any acute distress. Well developed, well nourished. HEENT: Pupils are round and equally reacting to light. EOMI. No scleral icterus. No conjunctival pallor. Normocephalic, atraumatic. No pharyngeal erythema. No thyromegaly. CARDIOVASCULAR: S1 and S2 present. No murmurs, rubs, or gallops. PULMONARY: Chest is clear to auscultation, no wheezing , no crackles. ABDOMEN: Soft, nontender, nondistended, normoactive bowel sounds. No palpable organomegaly. MUSCULOSKELETAL: No joint swelling or deformity. EXTREMITIES: No cyanosis, clubbing, or pedal edema. NEUROLOGICAL: Gross neurological examination did not reveal any focal deficits. SKIN: No rashes. no petechiae. Results CBC & Chem 7: 02/14/23 12:30 02/14/23 12:30 Labs: Abnormal Lab Results - Last 24 Hours (Table) 02/14/23 Range/Units 12:30 Creatinine 0.65 L (0.66-1.25) mg/dL Assessment and Plan Assessment: Chest pain, rule out cardiac causes. Most likely panic attack Nicotine dependence Bipolar disorder Plan: Continue with aspirin Cardiology consult Check echocardiogram Labs and medication were reviewed.. Continue same treatment. Continue with symptomatic treatment. Resume home medication. Monitor labs and vitals. DVT and GI prophylaxis. Further recommendations as per clinical course of the patient DVT prophylaxis: Subcutaneous heparin GI Prophylaxis: Pepcid Prognosis is guarded
[2023-02-14] MEDS: NICOTINE 14MG/24HR PATCH TRANSDERM SCH (20:36)
[2023-02-14] MEDS: FAMOTIDINE 20 MG/2 ML VIAL IV SCH (20:36)
[2023-02-14] MEDS: HEPARIN SODIUM,PORCINE 5,000 UNIT/ML 1 ML VIAL SQ SCH (20:38)
[2023-02-15 08:28] VITALS: BP 112/71; PULSE 59; RESP 16; TEMP 98.2
[2023-02-15] MEDS ORDERED: ASPIRIN 325 MG TAB PO SCH (09:00)
[2023-02-15] MEDS: NICOTINE 14MG/24HR PATCH TRANSDERM SCH (09:10)
[2023-02-15] MEDS: HEPARIN SODIUM,PORCINE 5,000 UNIT/ML 1 ML VIAL SQ SCH (09:10)
[2023-02-15] MEDS: FAMOTIDINE 20 MG/2 ML VIAL IV SCH (09:11)
[2023-02-15 09:13] LABS: Chol/HDL Ratio 3.25 Ratio; LDL Cholesterol,Calculated 80.2 mg/dL (0.0-131.0); VLDL Calculation 15.96 mg/dL (5.00-40.00)
[2023-02-15] MEDS ORDERED: ACETAMINOPHEN TAB 325 MG TAB PO PRN (09:18)
[2023-02-15] MEDS ORDERED: IBUPROFEN 400 MG TAB PO PRN (09:18)
--- NOTE | 2023-02-15 10:37 | P.CRDCN ---
History of Present Illness Consult date: 02/15/23 History of present illness: HISTORY OF PRESENTING ILLNESS 37-year-old male with past medical history of smoking tobacco and no other medical history presented to the ER with substernal chest pain. Patient was at his work chopping vegetables when he started experiencing bilateral back pain which was coming to his left side of the chest. This was associated with diaphoresis and nausea. His symptoms lasted for half an hours. They have not r ecurred since. He denied using smoking just prior to the event. He denied being hungry or dehydrated during the event. He does report family history of coronary artery disease in father and grandfa ther who early. Family history of stroke and mother ECG shows sinus rhythm with no significant ST-T wave changes. CTA chest did not show any evidence of dissection or PE. No significant coronary calcification appreciated REVIEW OF SYSTEMS 14 point review of system is negative except what is mentioned above in HPI. PHYSICAL EXAMINATION Vital signs reviewed. Head: Normocephalic. Eyes: Sclerae nonicteric. Neck: Brisk carotid upstroke, no jugular venous distention. Lungs: Clear to auscultation. Heart: Regular rate and rhythm, S1-S2, no S3, no murmur or rub. Abdomen: Soft nontender, positive bowel sounds no organomegaly. Extremities: No edema, intact distal pulses. Neuro: Alert, oritented, no focal deficits ASSESSMENT Atypical chest pain, rule out of acute coronary syndrome Tobacco smoker PLAN Start atorvastatin 20 mg daily Okay to be discharged. Recommend outpatient follow-up with cardiology next 1 week and an outpatient treadmill echo stress test Smoking cessation Past Medical History Past Medical History: No Reported History Additional Past Medical History / Comment(s): back pain, pilonidal cyst, ulcers History of Any Multi-Drug Resistant Organisms: None Reported Past Surgical History: Back Surgery Additional Past Surgical History / Comment(s): laminectomy L4 L5 Past Psychological History: ADD/ADHD, Anxiety, Bipolar Smoking Status: Current every day smoker Past Alcohol Use History: None Reported Past Drug Use History: Marijuana Medications and Allergies Home Medications Medication Instructions Recorded Confirmed Type Dextroamphetamine/Amphetamine 25 mg PO DAILY 02/14/23 02/14/23 History [Adderall Xr 25 mg Capsule] LORazepam [Ativan] 0.5 mg PO BID PRN 02/14/23 02/14/23 History risperiDONE [RisperDAL] 1 mg PO DAILY 02/14/23 02/14/23 History Allergies Allergy/AdvReac Type Severity Reaction Status Date / Time No Known Allergies Allergy Verified 02/14/23 15:20 Physical Exam Vitals: Vital Signs Temp Pulse Pulse Resp BP BP BP 02/15/23 07:00 98.2 F 59 L 16 112/71 02/15/23 02:49 98.4 F 66 15 116/64 02/14/23 21:46 98.1 F 61 15 109/67 02/14/23 20:00 65 16 02/14/23 18:40 98.6 F 65 16 136/91 02/14/23 15:13 65 18 119/90 02/14/23 11:49 98.0 F 66 18 120/86 Pulse Ox 02/15/23 07:00 99 02/15/23 02:49 96 02/14/23 21:46 98 02/14/23 20:00 02/14/23 18:40 100 02/14/23 15:13 99 02/14/23 11:49 100 Intake and Output 02/14/23 02/15/23 02/15/23 22:59 06:59 14:59 Other: # Voids 1 2 Weight 80.286 kg Results 02/14/23 12:30 02/14/23 12:30 Cardiac Enzymes 02/14/23 02/14/23 02/14/23 Range/Units 12:30 12:30 15:16 AST 25 (17-59) U/L Troponin I <0.012 <0.012 (0.000-0.034) ng/mL 02/14/23 Range/Units 19:05 AST (17-59) U/L Troponin I <0.012 (0.000-0.034) ng/mL Coagulation 02/14/23 Range/Units 12:30 PT 10.2 (10.0-12.5) sec APTT 27.5 (22.0-30.0) sec Lipids 02/15/23 Range/Units 05:24 Triglycerides 79.80 (0.00-149.00) mg/dL Cholesterol 139.00 (0.00-200.00) mg/dL HDL Cholesterol 42.80 (40.00-60.00) mg/dL Cholesterol/HDL Ratio 3.25 Ratio CBC 02/14/23 Range/Units 12:30 WBC 7.0 (3.8-10.6) k/uL RBC 4.68 (4.30-5.90) m/uL Hgb 15.0 (13.0-17.5) gm/dL Hct 43.1 (39.0-53.0) % Plt Count 198 (150-450) k/uL Comprehensive Metabolic Panel 02/14/23 Range/Units 12:30 Sodium 140 (137-145) mmol/L Potassium 4.4 (3.5-5.1) mmol/L Chloride 107 (98-107) mmol/L Carbon Dioxide 23 (22-30) mmol/L BUN 14 (9-20) mg/dL Creatinine 0.65 L (0.66-1.25) mg/dL Glucose 81 (74-99) mg/dL Calcium 9.4 (8.4-10.2) mg/dL AST 25 (17-59) U/L ALT 27 (4-49) U/L Alkaline Phosphatase 61 (38-126) U/L Total Protein 7.0 (6.3-8.2) g/dL Albumin 4.3 (3.5-5.0) g/dL Current Medications Generic Name Dose Route Start Last Admin Trade Name Freq PRN Reason Stop Dose Admin Acetaminophen 325 mg 02/15/23 09:18 Acetaminophen Tab 325 Mg Tab PO Q6HR PRN Fever and/ or Pain Aspirin 325 mg 02/15/23 09:00 02/15/23 09:10 Aspirin 325 Mg Tab PO 325 mg DAILY VIOLETTE Administration Famotidine 20 mg 02/14/23 21:00 02/15/23 09:11 Famotidine 20 Mg/2 Ml Vial IV 20 mg Q12HR VIOLETTE Administration Heparin Sodium (Porcine) 5,000 unit 02/14/23 21:00 02/15/23 09:10 Heparin Sodium,Porcine 5,000 Unit/Ml 1 Ml Vial SQ 5,000 unit Q12HR VIOLETTE Administration Ibuprofen 400 mg 02/15/23 09:18 02/15/23 09:42 Ibuprofen 400 Mg Tab PO 400 mg Q6HR PRN Administration Pain Nicotine 1 patch 02/14/23 20:15 02/15/23 09:10 Nicotine 14mg/24hr Patch TRANSDERM 1 patch DAILY VIOLETTE Administration Nitroglycerin 0.4 mg 02/14/23 14:48 Nitroglycerin Sl Tabs 0.4 Mg Tab SUBLINGUAL Q5M PRN Chest Pain Intake and Output 02/14/23 02/15/23 02/15/23 22:59 06:59 14:59 Other: # Voids 1 2 Weight 80.286 kg 02/14/23 12:30 02/14/23 12:30
[2023-02-15] MEDS ORDERED: ATORVASTATIN 20 MG TAB PO SCH (10:45)
--- NOTE | 2023-02-15 14:08 | P.DS ---
Providers Date of admission: 02/14/23 14:45 Attending physician: Francis Sky MD Consults: 02/14/23 14:48 Consult Physician Urgent Consulting Provider: Miles Bobby Consult Reason/Comments: chest pain Do you want consulting provider notified?: Yes Primary care physician: Stated None Hospital Course: please note pt was not discharged but left AMA pt left ama before i have a chance to see him or talk to him pt has capacity to make medical decision based upon my evaluation yesterday Patient Condition at Discharge: Fair Plan - Discharge Summary New Discharge Prescriptions: No Action risperiDONE [RisperDAL] 1 mg PO DAILY LORazepam [Ativan] 0.5 mg PO BID PRN PRN Reason: Anxiety Dextroamphetamine/Amphetamine [Adderall Xr 25 mg Capsule] 25 mg PO DAILY Discharge Medication List Dextroamphetamine/Amphetamine [Adderall Xr 25 mg Capsule] 25 mg PO DAILY 02/14/23 [History] LORazepam [Ativan] 0.5 mg PO BID PRN 02/14/23 [History] risperiDONE [RisperDAL] 1 mg PO DAILY 02/14/23 [History] Follow up Appointment(s)/Referral(s): None,Stated [Primary Care Provider] - 1-2 days Discharge Disposition: LEFT AGAINST MEDICAL ADVICE
== END 2023-02-15 10:30 | disposition left against medical advice (07) ==
LOC: EC 11:41 → 6NMEDSUR 14:45
PROVIDERS: ADMIT Internal Medicine; ATTEND Internal Medicine
DX: R07.89 Other chest pain (principal); R61 Generalized hyperhidrosis; R11.0 Nausea; R42 Dizziness and giddiness; M54.9 Dorsalgia, unspecified; F90.9 Attention-deficit hyperactivity disorder, unspecified type; F31.9 Bipolar disorder, unspecified; F41.9 Anxiety disorder, unspecified; F17.210 Nicotine dependence, cigarettes, uncomplicated; Z53.29 Procedure and treatment not carried out because of patient's decision for other reasons; Z79.899 Other long term (current) drug therapy; Z71.6 Tobacco abuse counseling; Z87.2 Personal history of diseases of the skin and subcutaneous tissue; Z98.890 Other specified postprocedural states; Z81.8 Family history of other mental and behavioral disorders; Z82.49 Family history of ischemic heart disease and other diseases of the circulatory system; Z82.3 Family history of stroke
CPT/HCPCS: 96376; 96361 ×3; 96372 ×2; 96374; 99285; 36415; 93005; 83880; 80061; 80053; 83735; 84484; 85025; 85610; 85730; 71045; 71275; G0378 ×2; S4990 ×2; J1644 ×2; J3490 ×2; Q9967